=== PATIENT | female | born 1960 | race Two or more races ===

== ENCOUNTER → 2016-07-22 | Outpatient (CLI) | payer OTHER | END | disposition home or self-care (01) | LOC: MA 07-21 13:30 | PROC: BH02ZZZ Plain Radiography of Bilateral Breasts (ICD-10-PCS; principal; 2016-07-22) | DX: Z12.39 Encounter for other screening for malignant neoplasm of breast (principal) | CPT/HCPCS: G0202 ==

== ENCOUNTER 2019-11-06 21:12 | Emergency (ER) | payer OTHER ==
[~2019-11-06] VITALS: Ht 152.4 cm; Wt 81.6 kg
[2019-11-06 21:22] VITALS: BP 133/67; Ht 152.4 cm; Wt 81.6 kg
== END 2019-11-06 22:49 | disposition home or self-care (01) ==
LOC: ED 21:12
DX: S52.501A Unspecified fracture of the lower end of right radius, initial encounter for closed fracture (principal); E78.00 Pure hypercholesterolemia, unspecified; W01.0XXA Fall on same level from slipping, tripping and stumbling without subsequent striking against object, initial encounter; Y93.89 Activity, other specified; Y92.89 Other specified places as the place of occurrence of the external cause; Y99.8 Other external cause status